=== PATIENT | female | born 1940 | race Caucasian/White ===

== ENCOUNTER → 2020-12-21 10:15 | Outpatient (CLI) | payer OTHER ==
[2013-01-17 12:01] VITALS: BMI 30.2
[~2020-12-21 10:15] MED LIST: CELEXA40 MG; IMDUR30 MG PO; LEVOTHROID50 MCG PO; NIASPAN500 MG; PRILOSEC20 MG PO; TOPROL XL25 MG PO; ZOCOR40 MG PO
== END | disposition home or self-care (01) ==
LOC: D.HCCECHO 10:15
PROVIDERS: ATTEND Internal Medicine Cardiovascular Disease
DX: I10 Essential (primary) hypertension (principal)